=== PATIENT | male | born 1950 | race Caucasian/White ===

== ENCOUNTER 2017-10-24 08:36 | Emergency (ER) | payer MEDICARE, BC ==
[~2017-10-24] VITALS: Ht 185.4 cm; Wt 78.0 kg
--- NOTE | 2017-10-24 08:48 | ER Report ---
History and Physical Time Seen By MD: 08:45 Hx. of Stated Complaint: RED, HOT RASH AREA ON INSIDE OF LEFT ANKLE. PAINFUL TO THE TOUCH HPI/ROS CHIEF COMPLAINT: Left leg pain, area of redness and warmth HISTORY OF PRESENT ILLNESS: This is a 67-year-old male. He comes into the ER today because of pain in the left leg. Pain started yesterday, upper posterior calf with pain in that area but no redness or skin changes. This morning, he no longer has much pain in the calf and now has pain in the medial side of his left ankle. There is a red rash in the area. It is warm to touch as well. Minimal pain with palpation. He has no pain in his thigh or quads. He has normal sensation in the foot and ankle. 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 He felt like the shortness of breath was due to elevation. He was somewhat dehydrated and did increase his fluid intake which is made the shortness of breath much better. No history of blood clots. No history of chest pains. He denies any nausea or vomiting. There is no problem with urination or with bowels. No fevers or chills. He did have several long drives recently, [address] from [facility]. Allergies: Coded Allergies: No Known Drug Allergies (Unverified , 10/24/17) Home Meds Active Scripts Sulfamethoxazole/Trimet 800-160 Mg Tab (BACTRIM DS TABLET) 1 Each Tablet, 1 TAB PO Q12H, #20 TAB 0 Refills Prov:KATHERYN MERRITT MD 10/24/17 Past Medical/Surgical History Elevated cholesterol. History of right ankle fracture. Reviewed Nurses Notes: Yes Constitutional Vital Sign - Last 24 Hours 10/24/17 10/24/17 10/24/17 10/24/17 08:36 08:41 08:41 08:51 Temp 97.0 Pulse ??? 69 69 Resp 14 B/P (MAP) 149/80 149/80 (103) Pulse Ox 93 94 O2 Delivery Room Air 10/24/17 10/24/17 10/24/17 10/24/17 09:00 09:06 09:21 09:30 Pulse 64 63 B/P (MAP) 141/83 (102) 132/81 (98) Pulse Ox 93 92 Physical Exam General Appearance: The patient is alert. No acute distress. Eyes: Pupils are equal, round. No pallor, injection or icterus. ENT: Mucous membranes are moist. Neck: Supple and non tender. Respiratory: Lungs are clear to auscultation. Cardiovascular: Regular rate and rhythm. No murmurs, gallops or rubs. Normal capillary refill. No edema. Gastrointestinal: Abdomen is soft and non tender Neurological: Alert and oriented x3. No focal neurologic deficits, with normal sensation in the left leg. Skin: Warm and dry. He does have a red rash medial side of the left ankle and lower leg. Some discomfort with palpation but no tenderness. The area is warm to the touch. Musculoskeletal: Extremities are otherwise nontender. No pain in the thigh and quads. No pain in the gastroc and soleus and behind the knee. Normal range of motion. DIFFERENTIAL DIAGNOSIS: After history and physical exam, differential diagnosis was considered for redness, rash, pain with some swelling in the left leg. There are some risk factors for DVT. Concern for possible cellulitis as well. Would also consider vasculitis. Medical Decision Making Data Points Result Diagram: 10/24/17 0901 Laboratory Hematology Test 10/24/17 09:01 Red Blood Count 4.90 M/uL (4.00-5.60) Mean Corpuscular Volume 89.8 fL (80.0-96.0) Mean Corpuscular Hemoglobin 31.2 pg (26.0-33.0) Mean Corpuscular Hemoglobin Concent 34.8 g/dL (32.0-36.0) Red Cell Distribution Width 13.4 % (11.5-14.5) Mean Platelet Volume 9.3 fL (7.2-11.1) Neutrophils (%) (Auto) 74.8 % (39.4-72.5) Lymphocytes (%) (Auto) 10.9 % (17.6-49.6) Monocytes (%) (Auto) 13.0 % (4.1-12.4) Eosinophils (%) (Auto) 1.0 % (0.4-6.7) Basophils (%) (Auto) 0.3 % (0.3-1.4) Nucleated RBC Relative Count (auto) 0.0 /100WBC Neutrophils # (Auto) 7.3 K/uL (2.0-7.4) Lymphocytes # (Auto) 1.1 K/uL (1.3-3.6) Monocytes # (Auto) 1.3 K/uL (0.3-1.0) Eosinophils # (Auto) 0.1 K/uL (0.0-0.5) Basophils # (Auto) 0.0 K/uL (0.0-0.1) Nucleated RBC Absolute Count (auto) 0.00 K/uL Erythrocyte Sedimentation Rate 25 mm/HOUR (0-20) C-Reactive Protein 7.4 mg/dl (<1.0) Chemistry Test 10/24/17 09:01 White Blood Count 9.8 k/uL (4.5-11.0) Red Blood Count 4.90 M/uL (4.00-5.60) Hemoglobin 15.3 g/dL (14.0-18.0) Hematocrit 44.0 % (42.0-52.0) Mean Corpuscular Volume 89.8 fL (80.0-96.0) Mean Corpuscular Hemoglobin 31.2 pg (26.0-33.0) Mean Corpuscular Hemoglobin Concent 34.8 g/dL (32.0-36.0) Red Cell Distribution Width 13.4 % (11.5-14.5) Platelet Count 139 K/uL (150-450) Mean Platelet Volume 9.3 fL (7.2-11.1) Neutrophils (%) (Auto) 74.8 % (39.4-72.5) Lymphocytes (%) (Auto) 10.9 % (17.6-49.6) Monocytes (%) (Auto) 13.0 % (4.1-12.4) Eosinophils (%) (Auto) 1.0 % (0.4-6.7) Basophils (%) (Auto) 0.3 % (0.3-1.4) Nucleated RBC Relative Count (auto) 0.0 /100WBC Neutrophils # (Auto) 7.3 K/uL (2.0-7.4) Lymphocytes # (Auto) 1.1 K/uL (1.3-3.6) Monocytes # (Auto) 1.3 K/uL (0.3-1.0) Eosinophils # (Auto) 0.1 K/uL (0.0-0.5) Basophils # (Auto) 0.0 K/uL (0.0-0.1) Nucleated RBC Absolute Count (auto) 0.00 K/uL Erythrocyte Sedimentation Rate 25 mm/HOUR (0-20) C-Reactive Protein 7.4 mg/dl (<1.0) EKG/Imaging Imaging EXAMINATION: Unilateral left lower extremity deep vein duplex Doppler ultrasound 10/24/2017 9:32 AM History: SWELLING, PAIN COMPARISON STUDIES: None FINDINGS: Grayscale compression, duplex and color Doppler interrogation of the left lower extremity deep veins from common femoral vein to proximal calf was performed. The greater saphenous vein in the ipsilateral proximal thigh was evaluated using similar technique. Left lower extremity: Common femoral vein negative Femoral vein negative Deep femoral vein - negative Popliteal vein negative Visualized deep calf veins negative. There is subcutaneous edema and utilized in the calf. No organized focal fluid collection. Greater saphenous vein in the proximal thigh negative Popliteal fossa: negative Incidentally a benign-appearing 2.6 cm left inguinal lymph node is demonstrated with a well preserved echogenic fatty hilus. IMPRESSION: Negative left lower extremity evaluation for DVT Report Dictated By: Jay Patiño MD at 10/24/2017 10:26 AM ED Course/Re-evaluation Clinical Indication for ER IV: IV Access ED Course CRP and ESR are elevated. Normal white blood cell count, but change in differential. Based on presentation, this appears to be cellulitis. Cannot entirely rule out inflammatory condition such as a vasculitis. Will start Bactrim DS twice a day and have him follow-up with his PCP, Dr. Preston next week, will call on Thursday for an appointment. Decision to Disposition Date: Oct 24, 2017 Decision to Disposition Time: 10:53 Depart Departure Latest Vital Signs Vital Signs Date Time Temp Pulse Resp B/P (MAP) Pulse Ox O2 Delivery O2 Flow Rate FiO2 10/24/17 09:30 132/81 (98) 10/24/17 09:21 63 92 10/24/17 08:41 97.0 14 Room Air Impression: Primary Impression: Cellulitis and abscess of left leg Condition: Improved Disposition: HOME OR SELF-CARE New Scripts Sulfamethoxazole/Trimet 800-160 Mg Tab (BACTRIM DS TABLET) 1 Each Tablet 1 TAB PO Q12H, #20 TAB 0 Refills Prov: RENÉ,KATHERYN W MD 10/24/17 Patient Instructions: Cellulitis (ED) Additional Instructions: Keep the leg elevated while at rest. Take the antibiotic Bactrim DS twice a day for 10 days. Call your primary care provider, Dr. Preston, and arrange follow-up visit with them next week. Return for severe fevers and chills, nausea vomiting, or severe worsening of the rash, swelling, redness and warmth of the left lower extremity KATHERYN MERRITT MD Oct 24, 2017 08:48
[2017-10-24 09:17] LABS: PLATELET COUNT, AUTOMATED 139 K/uL (150-450)
[2017-10-24 09:30] VITALS: BP 132/81
--- NOTE | 2017-10-24 10:31 | RADIOLOGY IMAGING REPORT ---
FAC[place] [facility] [place] NAME: Austin Barr : 1950 MR: [id number] V: [id number] EXAM DATE: ORDERING PHYSICIAN: KATHERYN MERRITT TECHNOLOGIST: Location: [facility] Patient: Austin Barr : 1950 Visit/Account:[id number] Date of Sevice: 10/24/2017 EXAMINATION: Unilateral left lower extremity deep vein duplex Doppler ultrasound 10/24/2017 9:32 AM History: SWELLING, PAIN COMPARISON STUDIES: None FINDINGS: Grayscale compression, duplex and color Doppler interrogation of the left lower extremity deep veins from common femoral vein to proximal calf was performed. The greater saphenous vein in the ipsilatera l proximal thigh was evaluated using similar technique. Left lower extremity: Common femoral vein negative Femoral vein negative Deep femoral vein - negative Popliteal vein negative Visualized deep calf veins negative. There is subcutaneous edema and utilized in the calf. No organi zed focal fluid collection. Greater saphenous vein in the proximal thigh negative Popliteal fossa: negative Incidentally a benign-appearing 2.6 cm left inguinal lymph node is demonstrated with a well preserved echogenic fatty hilus. IMPRESSION: Negative left lower extremity evaluation for DVT Report Dictated By: Jay Patiño MD at 10/24/2017 10:26 AM Report E-Signed By: Jay Patiño MD at 10/24/2017 10:27 AM WSN:[id number]
[2017-10-24] MEDS ORDERED: SULF-198 PO (10:54)
== END 2017-10-24 11:05 | disposition home or self-care (01) ==
LOC: ER 08:56
DX: L03.116 Cellulitis of left lower limb (principal); L02.416 Cutaneous abscess of left lower limb
CPT/HCPCS: 85025; 85651; 86140; 99284